=== PATIENT | female | born 1965 | race Caucasian/White ===

== ENCOUNTER 2020-10-25 08:22 | Emergency (ER) | payer MEDICAID ==
[~2020-10-25] VITALS: Ht 160 cm; Wt 72.7 kg
[2020-10-25 08:42] VITALS: BP 130/72
[2020-10-25] MEDS ORDERED: PRED20TA PO (08:47)
[2020-10-25] MEDS ORDERED: ALBU6.7H9 INH (08:47)
== END 2020-10-25 12:04 | disposition home or self-care (01) ==
LOC: ER 08:22
DX: U07.1 COVID-19 (principal); J06.9 Acute upper respiratory infection, unspecified; J45.901 Unspecified asthma with (acute) exacerbation; R51.9 Headache, unspecified; R50.9 Fever, unspecified; R09.89 Other specified symptoms and signs involving the circulatory and respiratory systems; R06.02 Shortness of breath; F17.200 Nicotine dependence, unspecified, uncomplicated; Z79.899 Other long term (current) drug therapy
CPT/HCPCS: 36415; 71045; 99284; U0003; U0005

== ENCOUNTER 2021-04-10 09:09 | Emergency (ER) | payer MEDICAID ==
[~2021-04-10] VITALS: Ht 160 cm; Wt 68.3 kg
[~2021-04-10 09:09] MED LIST: ALBU6.7H9 INH
[2021-04-10] MEDS ORDERED: PENI250T2 PO (09:34)
[2021-04-10] MEDS ORDERED: NAPR-56 PO (09:34)
[2021-04-10 09:44] VITALS: BP 145/92
== END 2021-04-10 09:46 | disposition home or self-care (01) ==
LOC: ER 09:09
DX: K04.7 Periapical abscess without sinus (principal); K08.89 Other specified disorders of teeth and supporting structures; Z79.2 Long term (current) use of antibiotics; Z79.899 Other long term (current) drug therapy
CPT/HCPCS: 99283

== ENCOUNTER 2023-08-27 01:42 | Emergency (ER) | payer MEDICAID, OTHER ==
[~2023-08-27] VITALS: Ht 157.5 cm; Wt 74.4 kg
[~2023-08-27 01:42] MED LIST changes: +ALBU6.7H14 INH; -ALBU6.7H9 INH
[2023-08-27 03:47] LABS: BILIRUBIN,URINE SMALL (Neg); CLARITY,URINE CLOUDY (Clear); COLOR,URINE DARK YELLOW (Yellow); GLUCOSE, URINE 100 mg/dl (Neg); KETONES,URINE TRACE mg/dl (Neg); LEUKOCYTE ESTERASE ,URINE NEGATIVE (Neg); NITRITES, URINE NEGATIVE (Neg); OCCULT BLOOD,URINE LARGE (Neg); PROTEIN,URINE 100 mg/dl (Neg); UA COLLECTION TYPE CLN CATCH MIDSTREAM
[2023-08-27 03:52] LABS: MUCUS STRANDS MANY /LPF (Neg); SQUAMOUS EPITHELIAL CELL,UR FEW /LPF (FEW)
[2023-08-27 03:53] LABS: RBC,URINE TNTC /HPF (0-2)
[2023-08-27 03:57] LABS: BACTERIA,URINE FEW /HPF (Neg); WBC,URINE 0-4 /HPF (0-4)
[2023-08-27 04:28] VITALS: BP 106/71; PULSE 72; RESP 14; O2SAT 100
== END 2023-08-27 04:32 | disposition home or self-care (01) ==
LOC: ER 01:43
DX: R31.9 Hematuria, unspecified (principal); R30.9 Painful micturition, unspecified; J45.909 Unspecified asthma, uncomplicated; Z87.442 Personal history of urinary calculi
CPT/HCPCS: 81001; 99283

== ENCOUNTER 2024-12-14 10:44 | Emergency (ER) | payer OTHER ==
[~2024-12-14] VITALS: Ht 160 cm; Wt 59.6 kg
--- NOTE | 2024-12-14 11:16 | RADIOLOGY REPORT ---
EXAM: DI CHEST,SINGLE VIEW Indication: cough right sided rhonchi Technique: Single frontal view of the chest was obtained Comparison: None FINDINGS: Lines and Tubes: None Lungs: No focal consolidation. Pleura: No effusion. No pneumothorax. Cardiomediastinal contours: Unremarkable. Atherosclerotic vascular calcifications of the thoracic aorta are noted. Bones: No acute osseous abnormality. IMPRESSION: No acute cardiopulmonary disease.
--- NOTE | 2024-12-14 11:18 | Physician Documentation ---
History of Present Illness ~ Chief Complaint: Cold, cough & congestion Stated Complaint: SINUS PAIN Time Seen by MD: 11:15 HPI Patient complains of congestion and a productive cough for one week. Reports subjective fevers. Currently afebrile in triage. Patient he will complains of right ear pain. She adds that she has been a long- time smoker and and feels short of breath. States she has never been diagnosed with COPD but has smoked for several decades Day of Onset: Dec 14, 2024 Medication Reconciliation Allergies: Coded Allergies: No Known Allergies (Unverified , 08/27/23) Scheduled Albuterol Sulfate (Proventil Hfa), 2 PUFFS INH Q6H Amoxicillin (Amoxicillin), 1 CAP PO Q8H Prednisone (Prednisone), 1 TAB PO BID Scheduled PRN albuterol inhaler (Pro-Air Inhaler), 2 PUFFS INH Q4HPRN PRN for wheezing Past Medical History Past Medical History: No Pertinent History, Asthma Past Surgical History: noncontributory Drug Use: none Lives In: Home Occupation: employed Review of Systems All Other Systems at this time: Reviewed and Negative ROS As stated above in the HPI, otherwise all systems are reviewed and negative. Physical Exam Vital Signs: Temperature: 98.0, Source: Oral, Heart Rate: 96, Respiratory Rate: 16, BP: 148/77, Pulse Oximetry: 99, Weight: 59.600 Oxygen Flow Rate: 0 Physical Exam General: Alert, no apparent distress. HEENT: PERRL, EOMI, no injection, moist mucous membranes. erythema right external auditory canal, cloudy tympanic membrane Neck: Full range of motion. Respiratory:coarse lung sounds Chest: No accessory muscle use. Cardiovascular: Regular rate and rhythm, no murmurs. Neurologic: Oriented x4. Psychiatric: Normal mood and affect. Skin: Normal color, warm and dry. No edema, no ecchymosis. Progress Results/Orders Results/Orders Vital Signs 12/14/24 10:45 Temp 98.0 Pulse 96 Resp 16 B/P (MAP) 148/77 Pulse Ox 99 O2 Flow Rate 0 Medical Decision Making Additional information obtaine: N/A Findings Patient presents with otitis externa and suspected viral bronchitis based on her history of smoking and risk of pneumonia going to prescribe her bronchodilator antibiotics and a steroid Per my interpretation of patient's x-ray I do not see any signs of the consolidation cardiomegaly or other opacities Differential Dx:Considerations: Include: Allergic rhinitis, Influenza, Otitis media, Peritonsillar abscess, Pharyngitis-Diphtheria, Pharyngitis-Streptoccal, Pharyngitis-Viral, Pneumonia, Pnuemonitis, Sinusitis, URI, Other Departure Disposition: HOME / SELF CARE / HOMELESS Impression: Primary Impression: Acute respiratory infection Additional Impression: Otitis media Condition: Stable Discharge Instructions: Upper Respiratory Infection, Adult Referrals: NO PRIMARY CARE PROVIDER (PCP) Prescriptions albuterol inhaler (Pro-Air Inhaler) 8.5 Gm Inhaler 2 PUFFS INH Q4HPRN PRN for wheezing for 30 Days, #18 GM Prov: KRISHAN MANZO [employer] 12/14/24 Prednisone (Prednisone) 10 Mg Tablet 1 TAB PO BID for 5 Days, #10 TAB Prov: KRISHAN [employer] 12/14/24 Amoxicillin (Amoxicillin) 500 Mg Capsule 1 CAP PO Q8H for 10 Days, #30 CAP Prov: KRISHAN [employer] 12/14/24 Education Educated: Patient Educated regarding: diagnosis Signature Scribe Signature: g Attestation: Scribed for Krishan Manzo Environmental Health Nurse by Krishan Cohen NP . 12/14/24 11:47 KRISHAN MANZO NP Dec 14, 2024 11:18
[2024-12-14] MEDS ORDERED: PRED10TA23 PO (11:45)
[2024-12-14] MEDS ORDERED: ALBU8HFA INH (11:45)
[2024-12-14] MEDS ORDERED: AMOX500C4 PO (11:45)
[2024-12-14 12:06] VITALS: BP 129/80; PULSE 88; RESP 17; TEMP 98; O2SAT 98
== END 2024-12-14 12:08 | disposition home or self-care (01) ==
LOC: ER 10:44
DX: J22 Unspecified acute lower respiratory infection (principal); H66.91 Otitis media, unspecified, right ear; F17.200 Nicotine dependence, unspecified, uncomplicated; Z79.899 Other long term (current) drug therapy
CPT/HCPCS: 71045; 99283